=== PATIENT | female | born 2005 | race Caucasian/White ===

== ENCOUNTER 2024-01-13 19:01 | Emergency (ER) | payer OTHER, SELFPAY ==
[2024-01-13 19:09] VITALS: BP 126/82
--- NOTE | 2024-01-13 21:10 | ED.GENMED ---
History of Present Illness
General
Chief Complaint: Dental Problem
Source: patient and family
Exam Limitations: none
Time Seen by Provider: 01/13/24 20:12
Nursing documentation reviewed up to this point in time: agreed with
Travel History
Have you had any contact with someone who has COVID-19?: No
Do you have any symptoms of coronavirus? Fever > 100 degrees, chills, cough, shortness of breath, sore throat, loss of taste or smell, muscle aches, or headache?: No
History of Present Illness
History of Present Illness:
Patient is a 18-year-old female who denies significant past medical history who presents emergency department accompanied by her mother for evaluation of left upper dental pain. Patient reports that she has been having issues with this tooth for
quite some time. She reports that the pain started about 5 months ago and has been occurring intermittently ever since then. Patient reports that over the past day or so, she has noticed the pain is radiating up towards her ear. She reports that
she feels like the left side of her face is a little swollen. Patient reports that she has an appointment with the [facility] due to her insurance but it is not until next month. Patient reports using Tylenol and Orajel today without
significant improvement in her pain. Patient denies taking any other pain medications.
While the patient was in the emergency department, she noted that she has been feeling more anxious lately. She reports that she is more anxious based on what is going on in her personal life. She denies any suicidal or homicidal ideation. She
reports he does have a primary care provider and they referred her to a therapist last year for these feelings however she has not yet been able to see one.
Past History
Past History
ED Past Medical History: None
ED Past Surgical History: None
Social History
Tobacco: Non-smoker
Alcohol: Occasional
Drug: None
Review of Systems
Review of Systems
Allergies reviewed?: Yes
All Other Systems: Not applicable
Constitutional: Reports no symptoms
EENT: Reports mouth pain
Respiratory: Reports no symptoms
Cardiac: Reports no symptoms
ABD/GI: Reports no symptoms
: Reports no symptoms
Musculoskeletal: Reports no symptoms
Skin: Reports no symptoms
Neurological: Reports no symptoms
Endocrine: Reports no symptoms
Hematologic/Lymphatic: Reports no symptoms
Psychiatric: Reports no symptoms
Phy Exam
General Physical Exam
General Presentation: well appearing and no apparent distress
General Skin: warm and dry
General Habitus: normal
General Mental: alert
General Hydration: appears well hydrated
ENT Exam
ENT Exam: EOMI, TM's normal, pharynx normal, neck supple, normocephalic, swallowing well and other (no fluctuance or drainable collection, no significant facial swelling noted)
Additional ENT: tooth #13 is broken, there is mild ttp over the tooth
Eye Exam
Eye Exam: PERRL, cornea clear and conjunctiva normal
Cardiovascular Exam
Cardiovascular Exam: regular rate/rhythm, no edema, no murmur and normal peripheral pulses
Pulmonary Exam
Pulmonary Exam: lungs clear, no respiratory distress, no rales, no crackles, no rhonchi, no stridor, no wheezing and no cough
Neurological Exam
Neurological Exam: alert, oriented x3, no motor deficits and speech normal
Skin Exam
Skin Exam: normal color, warm/dry, no rash and no petechia
Psychiatric Exam
Psychiatric Exam: normal mood/affect
Course
Vital Signs
Initial and Last Documented VS:
Initial Vital Signs
Temp Pulse Resp BP Pulse Ox
99.2 F 94 18 126/82 100
01/13/24 19:09 01/13/24 19:09 01/13/24 19:09 01/13/24 19:09 01/13/24 19:09
Last Documented Vital Signs
Temp Pulse Resp BP Pulse Ox
99.2 F 82 16 121/82 99
01/13/24 19:09 01/13/24 21:54 01/13/24 21:54 01/13/24 21:54 01/13/24 21:54
*Critical Care Note
Total Time (30-74mins, 75-104mins- exclusive of procedures): Not Applicable
Update Note
Update Note:
Patient is an otherwise healthy 18-year-old female who presents to the emergency department accompanied by her mother for evaluation of left upper dental pain which has been an ongoing issue for her for several months but became acutely worse over
the past few days. Patient denies difficulty swallowing, denies any shortness of breath or difficulty breathing, denies any fevers. On arrival, patient's vital signs are stable, she is afebrile. On exam, patient is well-appearing, she is in no
acute distress, there is no evidence of drainable collection at this time, there is no trismus and the patient is tolerating oral secretions without difficulty. I suspect a dental abscess and will empirically treat with a course of oral
antibiotics. Patient advised on pain control measures at home including use of ibuprofen and Tylenol. Patient reports that the dentist cannot see her until next month, she was encouraged to try to get a sooner appointment if at all possible.
Patient and her mother educated on return precautions, they expressed understanding the plan and agreed. Additionally, patient has noted that she feels more anxious recently. Patient denies any suicidal or homicidal ideation. Patient reports that
she was referred to a therapist by her PCP but did not see them, she was encouraged to make this a priority and to also talk with her PCP about possible anxiolytics. Patient was educated to return to the emergency department if she does develop any
thoughts of hurting herself or anyone else.
ED Attending Note
-
Portions of this chart may have been created with voice recognition software.� Occasional wrong word or��sound alike� substitutions may have occurred due to the inherent limitations of voice recognition software.
Discharge Plan
Departure
Patient Disposition: Home (Routine Discharge)
Date of Disposition: 01/13/24
Time of Disposition: 21:15
Patient with high blood pressure during this ER visit?: Yes
Condition: Good
Covid-19: Not Applicable
Discharge Problem:
Pain, dental
Instructions: Dental Pain (DC)
Prescriptions:
New
amoxicillin-pot clavulanate 875-125 mg tablet
1 tab PO Q12H 10 Days Qty: 20 0RF
Referrals:
Follow up, with the dental clinic [Other] - Follow up in 2-3 days
Kimberly Fraire PA-C [Family Provider] -
Activity Restrictions/Additional Instructions:
You were seen in the emergency department for evaluation of dental pain. Your examination demonstrates evidence of infection. You are being treated with a course of antibiotics, please take these exactly as directed even if you start to feel
better. You may take ibuprofen 600 mg every 6 hours and/or Tylenol 650 mg every 4-6 hours, not to exceed 3000 mg in any 24 hours as needed for pain. You may use warm salt water gargles for additional pain relief. It is important to follow-up with
soon as possible with dental medicine for definitive diagnosis and treatment. Please return to the emergency department if you develop significant facial swelling, difficulty swallowing, shortness of breath or difficulty breathing, fever greater
than 100.4 �F, pain with movement of your eye, or part of the worsening or concerning symptoms.
Interventions
Interventions:
*Risk Screen - Suicide Last Done: 01/13/24 19:09
*Neglect/Abuse Screening Last Done: 01/13/24 19:09
*Nursing Disposition Last Done: 01/13/24 21:54
Discharge Date and Time
Discharge Date/Time: 01/13/24 21:54
[2024-01-13 21:54] VITALS: BP 121/82
== END 2024-01-13 21:54 | disposition home or self-care (01) ==
LOC: EMR 19:01
PROVIDERS: EMERGENCY PHYSICIAN Emergency Medicine; FAMILY PHYSICIAN Physician Assistant Medical
DX: K08.89 Other specified disorders of teeth and supporting structures (principal)
CPT/HCPCS: 99282

== ENCOUNTER 2024-06-08 15:34 | Emergency (ER) | payer OTHER, SELFPAY ==
[2024-06-08 15:38] VITALS: BP 114/80
--- NOTE | 2024-06-08 16:18 | ED.GENMED ---
History of Present Illness
<Petrona Thomas MD, Resident - Last Filed: 06/08/24 18:42>
General
Chief Complaint: Breast Problem
Time Seen by Provider: 06/08/24 16:05
History of Present Illness
History of Present Illness:
18 year-old female who presented today with breast pain. She reported she has this pain since last week and yesterday. She reported that she was diagnosed with a breast lump about 4-5 years ago by her PCP. She told that was screened with breast
USG at theta time and it showed fat tissue. She reports she was not recommended to have follow up visit for it. Denies discharge from the nipple and denies any skin color change on her breast area.Denies any relationship with pain and her menstrual
cycles.
If applicable-neuro sx onset
Date of onset of symptoms: 06/07/24
Past History
<Petrona Thomas MD, Resident - Last Filed: 06/08/24 18:42>
Past History
ED Past Medical History: None
ED Past Surgical History: None
Social History
Tobacco: Non-smoker
Alcohol: Occasional
Drug: None
Phy Exam
<Petrona Thomas MD, Resident - Last Filed: 06/08/24 18:42>
Physical Exam
Physical Exam:
No LAP, No signs of infection, no skin color change, no discharge
General Physical Exam
General Presentation: well appearing and no apparent distress
General age: appears stated age
General Skin: warm
General Habitus: normal
General Mental: alert
General Hydration: appears well hydrated
Cardiovascular Exam
Cardiovascular Exam: regular rate/rhythm, no edema, no gallop, no JVD and no murmur
Pulmonary Exam
Pulmonary Exam: lungs clear, no respiratory distress, no rales, no crackles, no rhonchi, no stridor, no wheezing and no cough
Skin Exam
Skin Exam: normal color
Course
<Petrona Thomas MD, Resident - Last Filed: 06/08/24 18:42>
Vital Signs
Initial and Last Documented VS:
Initial Vital Signs
Temp Pulse Resp BP Pulse Ox
98.4 F 93 18 114/80 100
06/08/24 15:38 06/08/24 15:38 06/08/24 15:38 06/08/24 15:38 06/08/24 15:38
Last Documented Vital Signs
Temp Pulse Resp BP Pulse Ox
98.4 F 91 16 99/71 97
06/08/24 15:38 06/08/24 17:02 06/08/24 17:02 06/08/24 17:02 06/08/24 17:02
<Mil Huizar MD - Last Filed: 06/08/24 17:06>
Vital Signs
Initial and Last Documented VS:
Initial Vital Signs
Temp Pulse Resp BP Pulse Ox
98.4 F 93 18 114/80 100
06/08/24 15:38 06/08/24 15:38 06/08/24 15:38 06/08/24 15:38 06/08/24 15:38
Last Documented Vital Signs
Temp Pulse Resp BP Pulse Ox
98.4 F 91 16 99/71 97
06/08/24 15:38 06/08/24 17:02 06/08/24 17:02 06/08/24 17:02 06/08/24 17:02
<Petrona Thomas MD, Resident - Last Filed: 06/08/24 18:42>
*Critical Care Note
Total Time (30-74mins, 75-104mins- exclusive of procedures): Not Applicable
<Petrona Thomas MD, Resident - Last Filed: 06/08/24 18:42>
Comment
Comment:
The patient has pain on her left breast area. No any pathological findings on examination( No mass, no LAP, no discharge from the nipple, no skin changes, no infection sign) . The pain was more dense yesterday and today she feels better today. The
patient was recommended to follow up her breast pain with her PCP or OBGYN. Information of an OBGYN was provided to the patient.
ED Attending Note
<Petrona Thomas MD, Resident - Last Filed: 06/08/24 18:42>
-
Portions of this chart may have been created with voice recognition software.� Occasional wrong word or��sound alike� substitutions may have occurred due to the inherent limitations of voice recognition software.
<Mil Huizar MD - Last Filed: 06/08/24 17:06>
ED Attending Note
Patient seen and examined by attending physician: Yes
I performed the substantive portion of visit, reviewed & personally made and approve the management plan that is documented in note by myself or WENDY.: Yes
I performed a history and physical exam of patient and discussed management with resident, I reviewed resident's note and agree with documented findings and plan of care.: Yes
ED Attending Note:
18-year-old healthy female weeks of left breast lump noted. At times tender. Mostly tender with palpation. No redness no swelling no nipple discharge no fever or chills. Patient has had a lump intermittently for years.
On exam patient is nontoxic in no distress. Legal Secretary Receptionist was present are ED resident. Breasts appear grossly normal symmetrical. No nipple discharge. No erythema no swelling no warmth. No axillary adenopathy. On palpation no obvious mass was
noted. She has some breast tissue but nothing that would support an abscess or any obvious mass.
No radiologic testing warranted at this time. Reassurance and close follow-up with RECEIVING SUPERVISOR.
Discharge Plan
Departure
Patient Disposition: Home (Routine Discharge)
Date of Disposition: 06/08/24
Time of Disposition: 16:49
Patient with high blood pressure during this ER visit?: No
Discharge Problem:
breast lump history
Prescriptions:
No Action
amoxicillin-pot clavulanate 875-125 mg tablet
1 tab PO Q12H 10 Days Qty: 20 0RF
Referrals:
Kimberly Fraire PA-C [Family Provider] -
Luciana Holland MD [Active] - Next open appointment
Activity Restrictions/Additional Instructions:
Call OBGYN for follow up. Should come back with concerning symptoms like redness, mass, signs of infections
Interventions
Interventions:
*Risk Screen - Suicide Last Done: 06/08/24 15:38
*General Assessment Last Done: 06/08/24 15:38
*Neglect/Abuse Screening Last Done: 06/08/24 16:03
ED- Fall Risk Assessment Last Done: 06/08/24 17:04
*ED COVID-19 Vaccine History Last Done: 06/08/24 17:04
*Nursing Disposition Last Done: 06/08/24 17:04
ED-Skin Assessment Last Done: 06/08/24 17:02
Discharge Date and Time
Discharge Date/Time: 06/08/24 17:05
Print Language: PASHTO
[2024-06-08 17:02] VITALS: BP 99/71
== END 2024-06-08 17:05 | disposition home or self-care (01) ==
LOC: EMR 15:34
PROVIDERS: EMERGENCY PHYSICIAN Emergency Medicine; FAMILY PHYSICIAN Physician Assistant Medical
DX: N63.0 Unspecified lump in unspecified breast (principal)
CPT/HCPCS: 99282